=== PATIENT | female | born 1935 | race Caucasian/White ===

== ENCOUNTER 2018-02-17 15:18 | Inpatient (IN) | payer OTHER, BC ==
[~2018-02-17] VITALS: Ht 157.5 cm; Wt 54.1 kg
[2018-02-17 15:41] VITALS: Ht 157.5 cm; Wt 54.1 kg
[2018-02-17 16:31] LABS: PLATELET COUNT 212 x10^3mcL (130-400)
[2018-02-17 16:33] LABS: CALCIUM 7.9 mg/dL (8.5-10.1); CARBON DIOXIDE 26.4 mmol/L (21-32); CHLORIDE SERUM 97 mmol/L (98-107); CREATININE SERUM 0.6 mg/dL (0.6-1.0); GLUCOSE SERUM 129 mg/dL (74-106); POTASSIUM SERUM 3.9 mmol/L (3.5-5.1); SODIUM SERUM 132 mmol/L (136-145)
[2018-02-17 16:37] LABS: ALKALINE PHOSPHATASE 276 U/L (46-116); ALT/SGPT 8 U/L (14-59); AST/SGOT 12 U/L (15-37); BILIRUBIN TOTAL 0.35 mg/dL (0.20-1.00); LIPASE 93 IU/L (73-393)
[2018-02-17 17:07] LABS: RED CELL DISTRIBUTION WIDTH 22.9 % (11.5-14.5)
[2018-02-17 17:09] LABS: ALBUMIN 1.8 g/dL (3.4-5.0); AMYLASE 24 U/L (25-115)
[2018-02-17 17:25] LABS: BAND NEUTROPHIL 0 % (0-10); BASOPHIL 0 % (0-2); MONOCYTE 4 % (0-7); SEGMENTED NEUTROPHILS 11 % (37-75); rbc morphology (normal/abnorm) ABNORMAL (NORMAL)
[2018-02-17 17:30] LABS: MAGNESIUM 2.1 mg/dL (1.8-2.4); PHOSPHOROUS 3.2 mg/dL (2.5-4.9)
[2018-02-17 17:37] VITALS: BP 122/60
[2018-02-17 17:37] LABS: T3 TOTAL 0.79 ng/mL
[2018-02-17 17:42] LABS: FREE T4 1.23 ng/dL (0.76-1.46); FREE THYROXINE INDEX 2.7 ug/dL (1.4-4.5); T4(THYROXINE) 7.6 ug/dL (4.7-13.3)
[2018-02-17 21:39] VITALS: BP 121/58
[2018-02-17 22:04] VITALS: BP 108/54
[2018-02-17 22:32] VITALS: BP 106/54
[2018-02-17 23:22] VITALS: BP 107/55
[2018-02-17 23:32] LABS: microscopic required? YES; urine erythrocyte TRACE (NEGATIVE)
[2018-02-17 23:43] LABS: AMPHETAMINE QUAL UR NONE DETECTED (NEG <=1000)
[2018-02-18 01:13] VITALS: BP 111/55
[2018-02-18 05:45] VITALS: BP 114/57
[2018-02-18 06:58] LABS: CALCIUM 7.9 mg/dL (8.5-10.1); CARBON DIOXIDE 25.5 mmol/L (21-32); CHLORIDE SERUM 100 mmol/L (98-107); CREATININE SERUM 0.6 mg/dL (0.6-1.0); GLUCOSE SERUM 154 mg/dL (74-106); MAGNESIUM 2.1 mg/dL (1.8-2.4); PHOSPHOROUS 3.9 mg/dL (2.5-4.9); POTASSIUM SERUM 4.6 mmol/L (3.5-5.1); SODIUM SERUM 131 mmol/L (136-145); TRIGLYCERIDES 57 mg/dL (<150)
[2018-02-18 07:03] LABS: CHOLESTEROL 79 mg/dL (<200); CHOLESTEROL/HDL RATIO 3.4; HDL CHOLESTEROL 23 mg/dL (40-60)
[2018-02-18 08:27] LABS: PLATELET COUNT 208 x10^3mcL (130-400)
[2018-02-18 08:48] VITALS: BP 99/60
[2018-02-18 09:26] LABS: RED CELL DISTRIBUTION WIDTH 23.4 % (11.5-14.5)
[2018-02-18 11:50] LABS: BAND NEUTROPHIL 2 % (0-10); BASOPHIL 0 % (0-2); MONOCYTE 3 % (0-7); SEGMENTED NEUTROPHILS 11 % (37-75)
[2018-02-18 11:52] LABS: rbc morphology (normal/abnorm) ABNORMAL (NORMAL)
[2018-02-18 11:53] LABS: PLATELET MORPHOLOGY PLATELETS DECREASED; burr cell (echinocyte) 2+
[2018-02-18 12:50] VITALS: BP 109/61
[2018-02-18 15:57] VITALS: BP 111/60
[2018-02-18 20:53] VITALS: BP 141/56
[2018-02-19 05:33] VITALS: BP 132/59
[2018-02-19 06:53] LABS: CALCIUM 7.6 mg/dL (8.5-10.1); CARBON DIOXIDE 25.9 mmol/L (21-32); CHLORIDE SERUM 105 mmol/L (98-107); CREATININE SERUM 0.6 mg/dL (0.6-1.0); GLUCOSE SERUM 89 mg/dL (74-106); MAGNESIUM 1.9 mg/dL (1.8-2.4); PHOSPHOROUS 2.9 mg/dL (2.5-4.9); POTASSIUM SERUM 3.8 mmol/L (3.5-5.1); SODIUM SERUM 135 mmol/L (136-145)
[2018-02-19 07:01] LABS: PLATELET COUNT 189 x10^3mcL (130-400)
[2018-02-19 09:16] LABS: ATYPICAL LYMPH 3 %; BAND NEUTROPHIL 0 % (0-10); BASOPHIL 0 % (0-2); MONOCYTE 7 % (0-7); SEGMENTED NEUTROPHILS 2 % (37-75)
[2018-02-19 09:19] LABS: PLATELET MORPHOLOGY PLATELETS DECREASED; acanthocyte (spur cell) 3+; rbc morphology (normal/abnorm) ABNORMAL (NORMAL)
[2018-02-19 10:17] VITALS: BP 152/64
[2018-02-19 12:43] VITALS: BP 108/56
[2018-02-19 17:33] VITALS: BP 125/54
[2018-02-19 21:38] VITALS: BP 117/48
[2018-02-20 05:37] VITALS: BP 139/47
[2018-02-20 06:13] LABS: CALCIUM 7.7 mg/dL (8.5-10.1); CARBON DIOXIDE 24.8 mmol/L (21-32); CHLORIDE SERUM 105 mmol/L (98-107); CREATININE SERUM 0.5 mg/dL (0.6-1.0); GLUCOSE SERUM 89 mg/dL (74-106); POTASSIUM SERUM 3.5 mmol/L (3.5-5.1); SODIUM SERUM 136 mmol/L (136-145)
[2018-02-20 06:23] LABS: PLATELET COUNT 188 x10^3mcL (130-400)
[2018-02-20 06:24] LABS: RED CELL DISTRIBUTION WIDTH 23.3 % (11.5-14.5)
[2018-02-20 07:29] LABS: ATYPICAL LYMPH 3 %; BAND NEUTROPHIL 3 % (0-10); MONOCYTE 7 % (0-7); SEGMENTED NEUTROPHILS 3 % (37-75); rbc morphology (normal/abnorm) ABNORMAL (NORMAL); target cell (codocyte) 1+
[2018-02-20 07:32] VITALS: BP 141/54
[2018-02-20 17:23] VITALS: BP 135/64
[2018-02-20] MEDS ORDERED: PROLENSA1.6 ML OP (18:11)
[2018-02-20 20:54] VITALS: BP 127/59
[2018-02-21 06:09] VITALS: BP 145/62
[2018-02-21 08:27] VITALS: BP 154/70
[2018-02-21 12:53] VITALS: BP 122/65
[2018-02-21 17:20] VITALS: BP 144/86
[2018-02-21 20:48] VITALS: BP 95/55
[2018-02-22 05:32] VITALS: BP 140/62
[2018-02-22 05:59] LABS: CALCIUM 7.8 mg/dL (8.5-10.1); CARBON DIOXIDE 25.9 mmol/L (21-32); CHLORIDE SERUM 99 mmol/L (98-107); CREATININE SERUM 0.4 mg/dL (0.6-1.0); GLUCOSE SERUM 88 mg/dL (74-106); MAGNESIUM 1.7 mg/dL (1.8-2.4); PHOSPHOROUS 3.2 mg/dL (2.5-4.9); SODIUM SERUM 132 mmol/L (136-145)
[2018-02-22 06:13] LABS: POTASSIUM SERUM 2.8 mmol/L (3.5-5.1)
[2018-02-22 08:01] LABS: PLATELET COUNT 239 x10^3mcL (130-400)
[2018-02-22 08:36] LABS: RED CELL DISTRIBUTION WIDTH 24.2 % (11.5-14.5)
[2018-02-22 09:11] VITALS: BP 136/66
[2018-02-22 12:35] LABS: BAND NEUTROPHIL 1 % (0-10); MONOCYTE 4 % (0-7); MYELOCYTE 1 % (0-2); SEGMENTED NEUTROPHILS 3 % (37-75)
[2018-02-22 12:38] LABS: rbc morphology (normal/abnorm) ABNORMAL (NORMAL)
[2018-02-22 12:45] LABS: PLATELET MORPHOLOGY PLATELETS NORMAL; acanthocyte (spur cell) 2+
[2018-02-22 14:46] LABS: CALCIUM 8.1 mg/dL (8.5-10.1); CARBON DIOXIDE 29.3 mmol/L (21-32); CHLORIDE SERUM 102 mmol/L (98-107); CREATININE SERUM 0.5 mg/dL (0.6-1.0); GLUCOSE SERUM 112 mg/dL (74-106); POTASSIUM SERUM 3.7 mmol/L (3.5-5.1); SODIUM SERUM 133 mmol/L (136-145)
[2018-02-22 17:25] VITALS: BP 117/60
[2018-02-22 21:26] VITALS: BP 136/62
[2018-02-23 05:15] VITALS: BP 142/68
[2018-02-23 06:31] LABS: CALCIUM 7.8 mg/dL (8.5-10.1); CARBON DIOXIDE 27.4 mmol/L (21-32); CHLORIDE SERUM 100 mmol/L (98-107); CREATININE SERUM 0.5 mg/dL (0.6-1.0); GLUCOSE SERUM 103 mg/dL (74-106); MAGNESIUM 1.9 mg/dL (1.8-2.4); PHOSPHOROUS 2.6 mg/dL (2.5-4.9); POTASSIUM SERUM 3.5 mmol/L (3.5-5.1); SODIUM SERUM 133 mmol/L (136-145)
[2018-02-23 08:15] LABS: PLATELET COUNT 237 x10^3mcL (130-400)
[2018-02-23 08:23] LABS: RED CELL DISTRIBUTION WIDTH 23.8 % (11.5-14.5)
[2018-02-23 09:13] VITALS: BP 139/69
[2018-02-23 13:21] LABS: BAND NEUTROPHIL 2 % (0-10); MONOCYTE 5 % (0-7); SEGMENTED NEUTROPHILS 2 % (37-75)
[2018-02-23 13:22] LABS: PLATELET MORPHOLOGY PLATELETS NORMAL; acanthocyte (spur cell) 2+; rbc morphology (normal/abnorm) ABNORMAL (NORMAL)
[2018-02-23 15:58] VITALS: BP 139/69
== END 2018-02-23 17:35 | disposition home health service (06) | DRG 329 ==
LOC: ED 15:18 → MU 16:32 → DU 16:32 → MU 02-18 14:41
PROVIDERS: Family Medicine; Specialist; Surgery
PROC: 0DBN0ZZ Excision of Sigmoid Colon, Open Approach (ICD-10-PCS; principal; 2018-02-17 17:30)
PROC: 0HBRXZZ Excision of Toe Nail, External Approach (ICD-10-PCS; 2018-02-20)
PROC: 0HBRXZZ Excision of Toe Nail, External Approach (ICD-10-PCS; 2018-02-20)
PROC: 0HBRXZZ Excision of Toe Nail, External Approach (ICD-10-PCS; 2018-02-20)
PROC: 0HBRXZZ Excision of Toe Nail, External Approach (ICD-10-PCS; 2018-02-20)
PROC: 0HBRXZZ Excision of Toe Nail, External Approach (ICD-10-PCS; 2018-02-20)
PROC: 0HBRXZZ Excision of Toe Nail, External Approach (ICD-10-PCS; 2018-02-20)
PROC: 0HBRXZZ Excision of Toe Nail, External Approach (ICD-10-PCS; 2018-02-20)
PROC: 0HBRXZZ Excision of Toe Nail, External Approach (ICD-10-PCS; 2018-02-20)
PROC: 0HBRXZZ Excision of Toe Nail, External Approach (ICD-10-PCS; 2018-02-20)
PROC: 0HBRXZZ Excision of Toe Nail, External Approach (ICD-10-PCS; 2018-02-20)
DX: K94.09 Other complications of colostomy (principal); E43 Unspecified severe protein-calorie malnutrition; N39.0 Urinary tract infection, site not specified; E87.1 Hypo-osmolality and hyponatremia; I50.9 Heart failure, unspecified; I11.0 Hypertensive heart disease with heart failure; J44.9 Chronic obstructive pulmonary disease, unspecified; B35.1 Tinea unguium; Y83.3 Surgical operation with formation of external stoma as the cause of abnormal reaction of the patient, or of later complication, without mention of misadventure at the time of the procedure; Y92.009 Unspecified place in unspecified non-institutional (private) residence as the place of occurrence of the external cause; Z88.6 Allergy status to analgesic agent; Z88.0 Allergy status to penicillin; Z88.2 Allergy status to sulfonamides; Z86.73 Personal history of transient ischemic attack (TIA), and cerebral infarction without residual deficits; E11.65 Type 2 diabetes mellitus with hyperglycemia; G30.9 Alzheimer's disease, unspecified; F02.80 Dementia in other diseases classified elsewhere, unspecified severity, without behavioral disturbance, psychotic disturbance, mood disturbance, and anxiety; Z68.29 Body mass index [BMI] 29.0-29.9, adult
CPT/HCPCS: 83880; 84439; 92610; 97110-GP; 97116-GP; 97530-GP; J0696; J1170; J1644; J2270; J2405; J2704; J2710; J3010; J3480; J3490; J7030; J7620; Q0092

== ENCOUNTER 2018-05-20 19:31 | Inpatient (IN) | payer OTHER, BC ==
[~2018-05-20] VITALS: Ht 157.5 cm; Wt 66.2 kg
[~2018-05-20 19:31] MED LIST: PROLENSA1.6 ML OP
[2018-05-20 19:33] VITALS: BP 128/67
[2018-05-21] VITALS (8 sets, daily range): BP systolic 98–171; BP diastolic 55–94
[2018-05-21 02:49] LABS: CALCIUM 8.5 mg/dL (8.5-10.1); CHLORIDE SERUM 102 mmol/L (98-107); CREATININE SERUM 0.8 mg/dL (0.6-1.0); GLUCOSE SERUM 120 mg/dL (74-106); POTASSIUM SERUM 3.8 mmol/L (3.5-5.1); SODIUM SERUM 135 mmol/L (136-145)
[2018-05-21 02:58] LABS: MAGNESIUM 1.7 mg/dL (1.8-2.4); PHOSPHOROUS 2.7 mg/dL (2.5-4.9)
[2018-05-21 03:02] LABS: CHOLESTEROL/HDL RATIO 2.8; T3 TOTAL 0.72 ng/mL
[2018-05-21 03:05] LABS: FREE T4 1.5 ng/dL (0.76-1.46); T4(THYROXINE) 8.3 ug/dL (4.7-13.3)
[2018-05-21 03:31] LABS: PLATELET COUNT 122 x10^3mcL (130-400); RED CELL DISTRIBUTION WIDTH 19.1 % (11.5-14.5)
[2018-05-21 04:26] LABS: BAND NEUTROPHIL 0 % (0-10); BASOPHIL 0 % (0-2); MONOCYTE 8 % (0-7); SEGMENTED NEUTROPHILS 5 % (37-75)
[2018-05-21 04:28] LABS: rbc morphology (normal/abnorm) ABNORMAL (NORMAL)
[2018-05-21 04:29] LABS: PLATELET MORPHOLOGY LARGE PLATELET SEEN; burr cell (echinocyte) 1+; target cell (codocyte) 1+
[2018-05-22 03:19] VITALS: BP 136/72
[2018-05-22 05:43] LABS: PLATELET COUNT 130 x10^3mcL (130-400)
[2018-05-22 05:49] LABS: CALCIUM 8.5 mg/dL (8.5-10.1); CARBON DIOXIDE 23.4 mmol/L (21-32); CHLORIDE SERUM 104 mmol/L (98-107); CREATININE SERUM 0.7 mg/dL (0.6-1.0); GLUCOSE SERUM 158 mg/dL (74-106); MAGNESIUM 1.7 mg/dL (1.8-2.4); POTASSIUM SERUM 3.5 mmol/L (3.5-5.1); SODIUM SERUM 134 mmol/L (136-145)
[2018-05-22 07:19] LABS: RED CELL DISTRIBUTION WIDTH 18.9 % (11.5-14.5)
[2018-05-22 07:55] VITALS: Ht 157.5 cm; Wt 66.2 kg
[2018-05-22 12:10] LABS: MONOCYTE 5 % (0-7); SEGMENTED NEUTROPHILS 35 % (37-75)
[2018-05-22 12:11] LABS: BAND NEUTROPHIL 5 % (0-10); BASOPHIL 0 % (0-2); rbc morphology (normal/abnorm) ABNORMAL (NORMAL); target cell (codocyte) 1+
[2018-05-22 12:13] LABS: tear drop cell (dacryocyte) 1+
[2018-05-22 12:14] LABS: burr cell (echinocyte) 1+; schistocyte (helmet cell) 1+
[2018-05-22 12:16] LABS: PLATELET MORPHOLOGY GIANT PLATELET SEEN
[2018-05-22 19:49] VITALS: BP 156/82
[2018-05-22 23:38] VITALS: BP 145/79
[2018-05-23 03:46] VITALS: BP 120/67
[2018-05-23 05:15] LABS: BASOPHIL % 0.1 % (0-2)
[2018-05-23 05:30] LABS: CALCIUM 9.1 mg/dL (8.5-10.1); CARBON DIOXIDE 25.8 mmol/L (21-32); CHLORIDE SERUM 105 mmol/L (98-107); CREATININE SERUM 0.6 mg/dL (0.6-1.0); GLUCOSE SERUM 143 mg/dL (74-106); MAGNESIUM 1.9 mg/dL (1.8-2.4); PHOSPHOROUS 3.2 mg/dL (2.5-4.9); SODIUM SERUM 136 mmol/L (136-145)
[2018-05-23 07:52] LABS: PLATELET COUNT 157 x10^3mcL (130-400)
[2018-05-23 13:00] VITALS: BP 158/93
[2018-05-23 16:23] VITALS: BP 153/89
[2018-05-23 21:20] VITALS: BP 143/87
[2018-05-24 05:44] VITALS: BP 141/82
[2018-05-24 10:18] VITALS: BP 149/82
[2018-05-24 11:29] LABS: CALCIUM 8.8 mg/dL (8.5-10.1); CARBON DIOXIDE 30.5 mmol/L (21-32); CHLORIDE SERUM 104 mmol/L (98-107); CREATININE SERUM 0.5 mg/dL (0.6-1.0); GLUCOSE SERUM 182 mg/dL (74-106); POTASSIUM SERUM 3.3 mmol/L (3.5-5.1); SODIUM SERUM 141 mmol/L (136-145)
[2018-05-24 11:34] LABS: PLATELET COUNT 172 x10^3mcL (130-400)
[2018-05-24 12:05] LABS: RED CELL DISTRIBUTION WIDTH 18.6 % (11.5-14.5)
[2018-05-24 12:42] LABS: BAND NEUTROPHIL 6 % (0-10); BASOPHIL 0 % (0-2); MONOCYTE 6 % (0-7); SEGMENTED NEUTROPHILS 37 % (37-75)
[2018-05-24 12:43] LABS: PLATELET MORPHOLOGY GIANT PLATELET SEEN; rbc morphology (normal/abnorm) ABNORMAL (NORMAL); target cell (codocyte) 1+; tear drop cell (dacryocyte) 1+
[2018-05-24 12:44] LABS: burr cell (echinocyte) 1+; schistocyte (helmet cell) 1+
[2018-05-24] MEDS ORDERED: IPRATROPIUM BROM3 M2 INH (13:02)
[2018-05-24] MEDS ORDERED: ZES10 PO (13:02)
[2018-05-24] MEDS ORDERED: COR200 PO (13:02)
[2018-05-24] MEDS ORDERED: NOR5 PO (13:02)
[2018-05-24] MEDS ORDERED: COR3 PO (13:02)
[2018-05-24] MEDS ORDERED: TRA50 PO (13:03)
[2018-05-24] MEDS ORDERED: PRI20 PO (13:03)
[2018-05-24] MEDS ORDERED: PREDNISONE50 MG PO (13:07)
[2018-05-24] MEDS ORDERED: ASPIR LOW81 MG PO (13:08)
[2018-05-24] MEDS ORDERED: DOXYCYCLINE MO100 MG PO (13:08)
[2018-05-24] MEDS ORDERED: L20I PO (13:08)
[2018-05-24 13:25] VITALS: BP 141/80
[2018-05-24 14:55] VITALS: BP 141/80
[2018-05-24 17:51] VITALS: BP 141/80
[2018-05-24 17:55] VITALS: BP 142/76
== END 2018-05-24 22:28 | disposition home health service (06) | DRG 871 ==
LOC: DU 19:31 → MU 19:31 → IC 19:31 → DU 05-21 06:17 → IC 05-21 09:09 → DU 05-23 11:08
PROVIDERS: Internal Medicine
DX: A41.9 Sepsis, unspecified organism (principal); I21.A1 Myocardial infarction type 2; J96.01 Acute respiratory failure with hypoxia; I50.43 Acute on chronic combined systolic (congestive) and diastolic (congestive) heart failure; J18.9 Pneumonia, unspecified organism; N17.0 Acute kidney failure with tubular necrosis; E43 Unspecified severe protein-calorie malnutrition; G93.41 Metabolic encephalopathy; J44.1 Chronic obstructive pulmonary disease with (acute) exacerbation; I48.92 Unspecified atrial flutter; R65.20 Severe sepsis without septic shock; E11.65 Type 2 diabetes mellitus with hyperglycemia; I11.0 Hypertensive heart disease with heart failure; D63.1 Anemia in chronic kidney disease; E83.42 Hypomagnesemia; K21.9 Gastro-esophageal reflux disease without esophagitis; Z66 Do not resuscitate; Z85.6 Personal history of leukemia; Z79.4 Long term (current) use of insulin; Z68.27 Body mass index [BMI] 27.0-27.9, adult; F17.210 Nicotine dependence, cigarettes, uncomplicated
CPT/HCPCS: 36600; 83880; 84439; 97110-GP; 97116-GP; 97530-GP; 97535-GP; J0282; J0696; J1940; J2270; J2920; J3490; J7030; J7620; Q0092

== ENCOUNTER 2018-09-04 02:21 | Inpatient (IN) | payer OTHER, BC ==
[~2018-09-04] VITALS: Ht 157.5 cm; Wt 47.6 kg
[~2018-09-04 02:21] MED LIST changes: +ASPIR LOW81 MG PO; +COR200 PO; +COR3 PO; +DOXYCYCLINE MO100 MG PO; +IPRATROPIUM BROM3 M2 INH; +L20I PO; +NOR5 PO; +PREDNISONE50 MG PO; +PRI20 PO; +TRA50 PO; +ZES10 PO
[2018-09-04 03:22] LABS: CALCIUM 8.3 mg/dL (8.5-10.1); CARBON DIOXIDE 28.9 mmol/L (21-32); CHLORIDE SERUM 94 mmol/L (98-107); GLUCOSE SERUM 133 mg/dL (74-106); POTASSIUM SERUM 3.2 mmol/L (3.5-5.1); SODIUM SERUM 133 mmol/L (136-145)
[2018-09-04 03:26] LABS: BASOPHIL % 0.5 % (0-2); PLATELET COUNT 171 x10^3mcL (130-400)
[2018-09-04 03:32] LABS: ALKALINE PHOSPHATASE 182 U/L (46-116); ALT/SGPT 9 U/L (14-59); AST/SGOT 18 U/L (15-37); CHOLESTEROL 83 mg/dL (<200); CHOLESTEROL/HDL RATIO 2.5; HDL CHOLESTEROL 33 mg/dL (40-60); LIPASE 51 IU/L (73-393); TOTAL PROTEIN, SERUM 9.3 g/dL (6.4-8.2); TRIGLYCERIDES 75 mg/dL (<150)
[2018-09-04 03:40] LABS: RED CELL DISTRIBUTION WIDTH 20.8 % (11.5-14.5)
[2018-09-04 03:43] LABS: rbc morphology (normal/abnorm) ABNORMAL (NORMAL)
[2018-09-04 04:00] LABS: T3 TOTAL 0.72 ng/mL
[2018-09-04 04:07] LABS: microscopic required? YES; urine erythrocyte NEGATIVE (NEGATIVE)
[2018-09-04 04:18] LABS: FREE T4 1.59 ng/dL (0.76-1.46); FREE THYROXINE INDEX 3.3 ug/dL (1.4-4.5); T4(THYROXINE) 9.1 ug/dL (4.7-13.3)
[2018-09-04 04:32] LABS: MAGNESIUM 1.7 mg/dL (1.8-2.4); PHOSPHOROUS 3.3 mg/dL (2.5-4.9)
[2018-09-04 06:23] VITALS: BP 170/88
[2018-09-04 09:36] VITALS: BP 156/78
[2018-09-04 11:58] LABS: CALCIUM 8.4 mg/dL (8.5-10.1); CARBON DIOXIDE 31.4 mmol/L (21-32); CHLORIDE SERUM 97 mmol/L (98-107); CREATININE SERUM 0.9 mg/dL (0.6-1.0); GLUCOSE SERUM 134 mg/dL (74-106); SODIUM SERUM 134 mmol/L (136-145)
[2018-09-04 13:09] LABS: PLATELET COUNT 176 x10^3mcL (130-400)
[2018-09-04 13:10] LABS: RED CELL DISTRIBUTION WIDTH 20.9 % (11.5-14.5)
[2018-09-04 13:52] LABS: BAND NEUTROPHIL 13 % (0-10); BASOPHIL 0 % (0-2); MONOCYTE 8 % (0-7); MYELOCYTE 1 % (0-2); SEGMENTED NEUTROPHILS 33 % (37-75)
[2018-09-04 13:55] LABS: rbc morphology (normal/abnorm) ABNORMAL (NORMAL)
[2018-09-04 13:56] LABS: PLATELET MORPHOLOGY GIANT PLATELET SEEN; acanthocyte (spur cell) 1+; burr cell (echinocyte) 1+; ovalocyte/elliptocyte 1+; target cell (codocyte) 1+
[2018-09-04 14:03] VITALS: BP 158/92
[2018-09-04 17:08] VITALS: BP 133/78
[2018-09-04 21:24] VITALS: BP 155/85
[2018-09-05 05:13] VITALS: BP 174/86
[2018-09-05 07:19] LABS: PLATELET COUNT 196 x10^3mcL (130-400)
[2018-09-05 07:37] LABS: CALCIUM 8.3 mg/dL (8.5-10.1); CARBON DIOXIDE 28.2 mmol/L (21-32); CHLORIDE SERUM 99 mmol/L (98-107); CREATININE SERUM 0.8 mg/dL (0.6-1.0); GLUCOSE SERUM 142 mg/dL (74-106); MAGNESIUM 2.1 mg/dL (1.8-2.4); POTASSIUM SERUM 4.1 mmol/L (3.5-5.1); SODIUM SERUM 136 mmol/L (136-145)
[2018-09-05 07:57] VITALS: BP 171/84
[2018-09-05 08:35] LABS: RED CELL DISTRIBUTION WIDTH 20.8 % (11.5-14.5)
[2018-09-05 10:00] LABS: BAND NEUTROPHIL 12 % (0-10); BASOPHIL 0 % (0-2); MONOCYTE 9 % (0-7); SEGMENTED NEUTROPHILS 39 % (37-75)
[2018-09-05 10:01] VITALS: BP 150/78
[2018-09-05 10:01] LABS: rbc morphology (normal/abnorm) ABNORMAL (NORMAL)
[2018-09-05 10:02] LABS: acanthocyte (spur cell) 1+; burr cell (echinocyte) 1+; ovalocyte/elliptocyte 1+; target cell (codocyte) 1+
[2018-09-05 18:01] VITALS: BP 178/89
[2018-09-05 20:50] VITALS: BP 195/102
[2018-09-05 22:30] VITALS: BP 128/64
[2018-09-06 05:35] VITALS: BP 162/83
[2018-09-06 06:34] LABS: PLATELET COUNT 213 x10^3mcL (130-400)
[2018-09-06 07:07] LABS: CALCIUM 8.5 mg/dL (8.5-10.1); CARBON DIOXIDE 32.2 mmol/L (21-32); CHLORIDE SERUM 100 mmol/L (98-107); CREATININE SERUM 0.7 mg/dL (0.6-1.0); GLUCOSE SERUM 142 mg/dL (74-106); MAGNESIUM 2.1 mg/dL (1.8-2.4); PHOSPHOROUS 3.5 mg/dL (2.5-4.9); SODIUM SERUM 135 mmol/L (136-145)
[2018-09-06 07:34] LABS: RED CELL DISTRIBUTION WIDTH 21.4 % (11.5-14.5)
[2018-09-06 08:05] VITALS: BP 146/80
[2018-09-06 11:44] LABS: BAND NEUTROPHIL 11 % (0-10); BASOPHIL 0 % (0-2); MONOCYTE 9 % (0-7)
[2018-09-06 11:46] LABS: SEGMENTED NEUTROPHILS 38 % (37-75); rbc morphology (normal/abnorm) ABNORMAL (NORMAL)
[2018-09-06 11:47] LABS: burr cell (echinocyte) 1+; ovalocyte/elliptocyte 1+; target cell (codocyte) 1+
[2018-09-06 13:15] VITALS: BP 150/77
[2018-09-06 16:27] VITALS: BP 147/98
[2018-09-06 19:59] VITALS: BP 189/98
[2018-09-06 21:04] VITALS: BP 167/89
[2018-09-07] VITALS (8 sets, daily range): BP systolic 151–185; BP diastolic 68–111
[2018-09-07 06:50] LABS: PLATELET COUNT 228 x10^3mcL (130-400)
[2018-09-07 07:06] LABS: CALCIUM 8.2 mg/dL (8.5-10.1); CARBON DIOXIDE 33.4 mmol/L (21-32); CHLORIDE SERUM 99 mmol/L (98-107); CREATININE SERUM 0.6 mg/dL (0.6-1.0); GLUCOSE SERUM 134 mg/dL (74-106); PHOSPHOROUS 2.3 mg/dL (2.5-4.9); POTASSIUM SERUM 3.2 mmol/L (3.5-5.1); SODIUM SERUM 138 mmol/L (136-145)
[2018-09-07 08:10] LABS: RED CELL DISTRIBUTION WIDTH 21.4 % (11.5-14.5)
[2018-09-07 13:30] LABS: BAND NEUTROPHIL 5 % (0-10); MONOCYTE 5 % (0-7); SEGMENTED NEUTROPHILS 36 % (37-75); rbc morphology (normal/abnorm) ABNORMAL (NORMAL)
[2018-09-07 13:31] LABS: acanthocyte (spur cell) 1+; burr cell (echinocyte) 2+; ovalocyte/elliptocyte 1+; target cell (codocyte) 2+
[2018-09-07 13:32] LABS: PLATELET MORPHOLOGY GIANT PLATELET SEEN
[2018-09-08] VITALS (10 sets, daily range): BP systolic 145–183; BP diastolic 73–90
[2018-09-08 07:15] LABS: PLATELET COUNT 198 x10^3mcL (130-400)
[2018-09-08 07:17] LABS: CALCIUM 8.2 mg/dL (8.5-10.1); CARBON DIOXIDE 34.1 mmol/L (21-32); CHLORIDE SERUM 102 mmol/L (98-107); CREATININE SERUM 0.6 mg/dL (0.6-1.0); GLUCOSE SERUM 119 mg/dL (74-106); MAGNESIUM 1.9 mg/dL (1.8-2.4); PHOSPHOROUS 2.4 mg/dL (2.5-4.9); POTASSIUM SERUM 3.4 mmol/L (3.5-5.1); SODIUM SERUM 137 mmol/L (136-145)
[2018-09-08 07:21] LABS: RED CELL DISTRIBUTION WIDTH 20.8 % (11.5-14.5)
[2018-09-08 09:23] LABS: ATYPICAL LYMPH 5 %; BAND NEUTROPHIL 0 % (0-10); BASOPHIL 0 % (0-2); MONOCYTE 24 % (0-7); PLATELET MORPHOLOGY PLATELETS DECREASED; SEGMENTED NEUTROPHILS 7 % (37-75)
[2018-09-08 09:25] LABS: acanthocyte (spur cell) 3+; rbc morphology (normal/abnorm) ABNORMAL (NORMAL); target cell (codocyte) 2+
[2018-09-09] VITALS (9 sets, daily range): BP systolic 140–190; BP diastolic 64–95
[2018-09-09 06:47] LABS: CALCIUM 8.3 mg/dL (8.5-10.1); CARBON DIOXIDE 35.3 mmol/L (21-32); CHLORIDE SERUM 99 mmol/L (98-107); CREATININE SERUM 0.6 mg/dL (0.6-1.0); GLUCOSE SERUM 141 mg/dL (74-106); PHOSPHOROUS 2.7 mg/dL (2.5-4.9); POTASSIUM SERUM 3.3 mmol/L (3.5-5.1); SODIUM SERUM 138 mmol/L (136-145)
[2018-09-09 12:46] LABS: PLATELET COUNT 214 x10^3mcL (130-400)
[2018-09-09 12:54] LABS: RED CELL DISTRIBUTION WIDTH 21.3 % (11.5-14.5)
[2018-09-09 13:59] LABS: ATYPICAL LYMPH 8 %; BAND NEUTROPHIL 0 % (0-10); BASOPHIL 0 % (0-2); MONOCYTE 30 % (0-7); SEGMENTED NEUTROPHILS 8 % (37-75)
[2018-09-09 14:01] LABS: acanthocyte (spur cell) 2+; rbc morphology (normal/abnorm) ABNORMAL (NORMAL)
[2018-09-09 14:02] LABS: PLATELET MORPHOLOGY PLATELETS DECREASED
[2018-09-10] VITALS (7 sets, daily range): BP systolic 118–192; BP diastolic 53–88
[2018-09-10 06:58] LABS: CALCIUM 8.5 mg/dL (8.5-10.1); CARBON DIOXIDE 37.2 mmol/L (21-32); CHLORIDE SERUM 101 mmol/L (98-107); CREATININE SERUM 0.5 mg/dL (0.6-1.0); GLUCOSE SERUM 148 mg/dL (74-106); MAGNESIUM 2.1 mg/dL (1.8-2.4); PHOSPHOROUS 3.1 mg/dL (2.5-4.9); POTASSIUM SERUM 3.3 mmol/L (3.5-5.1); SODIUM SERUM 141 mmol/L (136-145)
[2018-09-10 09:46] LABS: PLATELET COUNT 188 x10^3mcL (130-400); RED CELL DISTRIBUTION WIDTH 19.3 % (11.5-14.5)
[2018-09-10 09:53] LABS: BAND NEUTROPHIL 0 % (0-10); MONOCYTE 46 % (0-7); SEGMENTED NEUTROPHILS 8 % (37-75)
[2018-09-10 09:54] LABS: PLATELET MORPHOLOGY PLATELETS DECREASED; rbc morphology (normal/abnorm) ABNORMAL (NORMAL)
[2018-09-11 05:33] VITALS: BP 152/68
[2018-09-11 06:32] LABS: CALCIUM 8.3 mg/dL (8.5-10.1); CARBON DIOXIDE 38.7 mmol/L (21-32); CHLORIDE SERUM 101 mmol/L (98-107); CREATININE SERUM 0.5 mg/dL (0.6-1.0); GLUCOSE SERUM 145 mg/dL (74-106); MAGNESIUM 2.2 mg/dL (1.8-2.4); PHOSPHOROUS 2.7 mg/dL (2.5-4.9); POTASSIUM SERUM 3.1 mmol/L (3.5-5.1); SODIUM SERUM 140 mmol/L (136-145)
[2018-09-11 07:44] LABS: PLATELET COUNT 172 x10^3mcL (130-400)
[2018-09-11 08:07] VITALS: BP 168/79
[2018-09-11 08:40] LABS: RED CELL DISTRIBUTION WIDTH 21.2 % (11.5-14.5)
[2018-09-11 09:55] LABS: BAND NEUTROPHIL 1 % (0-10); BASOPHIL 0 % (0-2); MONOCYTE 15 % (0-7); SEGMENTED NEUTROPHILS 9 % (37-75)
[2018-09-11 09:56] LABS: rbc morphology (normal/abnorm) ABNORMAL (NORMAL); target cell (codocyte) 1+
[2018-09-11 09:57] LABS: PLATELET MORPHOLOGY GIANT PLATELET SEEN; burr cell (echinocyte) 1+; tear drop cell (dacryocyte) 1+
[2018-09-11 12:55] VITALS: BP 174/80
[2018-09-11 18:27] VITALS: BP 159/76
[2018-09-11 21:05] VITALS: BP 143/71
[2018-09-12] VITALS (7 sets, daily range): BP systolic 120–176; BP diastolic 63–78; Ht 157.5 cm; Wt 47.6 kg
[2018-09-12 07:23] LABS: CALCIUM 8.3 mg/dL (8.5-10.1); CARBON DIOXIDE 37.3 mmol/L (21-32); CHLORIDE SERUM 100 mmol/L (98-107); CREATININE SERUM 0.6 mg/dL (0.6-1.0); GLUCOSE SERUM 120 mg/dL (74-106); MAGNESIUM 2.5 mg/dL (1.8-2.4); PHOSPHOROUS 3.2 mg/dL (2.5-4.9); POTASSIUM SERUM 3.4 mmol/L (3.5-5.1); SODIUM SERUM 138 mmol/L (136-145)
[2018-09-12 08:07] LABS: PLATELET COUNT 132 x10^3mcL (130-400)
[2018-09-12 08:11] LABS: RED CELL DISTRIBUTION WIDTH 20.8 % (11.5-14.5)
[2018-09-12 09:58] LABS: BAND NEUTROPHIL 2 % (0-10); BASOPHIL 0 % (0-2); MONOCYTE 17 % (0-7); SEGMENTED NEUTROPHILS 13 % (37-75)
[2018-09-12 10:05] LABS: PLATELET MORPHOLOGY GIANT PLATELET SEEN; rbc morphology (normal/abnorm) ABNORMAL (NORMAL); target cell (codocyte) 1+
[2018-09-12 10:06] LABS: burr cell (echinocyte) 1+; tear drop cell (dacryocyte) 1+
[2018-09-13 05:45] VITALS: BP 135/66
[2018-09-13 07:07] LABS: CARBON DIOXIDE 39.2 mmol/L (21-32); CHLORIDE SERUM 98 mmol/L (98-107); CREATININE SERUM 0.6 mg/dL (0.6-1.0); GLUCOSE SERUM 121 mg/dL (74-106); PHOSPHOROUS 2.5 mg/dL (2.5-4.9); POTASSIUM SERUM 3.7 mmol/L (3.5-5.1); SODIUM SERUM 136 mmol/L (136-145)
[2018-09-13 07:57] LABS: PLATELET COUNT 105 x10^3mcL (130-400); RED CELL DISTRIBUTION WIDTH 21.4 % (11.5-14.5)
[2018-09-13 08:57] VITALS: BP 114/59
[2018-09-13 13:27] VITALS: BP 145/65
[2018-09-13 14:09] LABS: BAND NEUTROPHIL 10 % (0-10); MONOCYTE 5 % (0-7); SEGMENTED NEUTROPHILS 15 % (37-75)
[2018-09-13 14:10] LABS: PLATELET MORPHOLOGY PLATELETS DECREASED; rbc morphology (normal/abnorm) ABNORMAL (NORMAL)
[2018-09-13 17:54] VITALS: BP 144/72
[2018-09-13 20:27] VITALS: BP 126/50
[2018-09-14 04:55] VITALS: BP 119/53
[2018-09-14 09:43] VITALS: BP 115/54
[2018-09-14 11:16] LABS: CALCIUM 7.6 mg/dL (8.5-10.1); CHLORIDE SERUM 95 mmol/L (98-107); CREATININE SERUM 0.7 mg/dL (0.6-1.0); GLUCOSE SERUM 130 mg/dL (74-106); POTASSIUM SERUM 3.7 mmol/L (3.5-5.1); SODIUM SERUM 135 mmol/L (136-145)
[2018-09-14 12:04] LABS: PLATELET COUNT 76 x10^3mcL (130-400); RED CELL DISTRIBUTION WIDTH 21.7 % (11.5-14.5)
[2018-09-14 12:15] LABS: ATYPICAL LYMPH 1 %; BAND NEUTROPHIL 0 % (0-10); BASOPHIL 0 % (0-2); MONOCYTE 23 % (0-7); SEGMENTED NEUTROPHILS 35 % (37-75)
[2018-09-14 12:16] LABS: acanthocyte (spur cell) 2+; rbc morphology (normal/abnorm) ABNORMAL (NORMAL)
[2018-09-14 12:17] LABS: PLATELET MORPHOLOGY PLATELETS DECREASED
[2018-09-14 14:21] VITALS: BP 104/52
[2018-09-14 18:26] VITALS: BP 124/47
[2018-09-14 21:00] VITALS: BP 126/66
[2018-09-15 04:48] VITALS: BP 142/68
[2018-09-15 06:50] LABS: CALCIUM 7.6 mg/dL (8.5-10.1); CARBON DIOXIDE 32.6 mmol/L (21-32); CHLORIDE SERUM 99 mmol/L (98-107); CREATININE SERUM 0.6 mg/dL (0.6-1.0); GLUCOSE SERUM 96 mg/dL (74-106); POTASSIUM SERUM 3.6 mmol/L (3.5-5.1); SODIUM SERUM 135 mmol/L (136-145)
[2018-09-15 07:27] LABS: PLATELET COUNT 73 x10^3mcL (130-400); RED CELL DISTRIBUTION WIDTH 21.3 % (11.5-14.5)
[2018-09-15 09:00] LABS: BAND NEUTROPHIL 0 % (0-10); BASOPHIL 0 % (0-2); MONOCYTE 48 % (0-7); PLATELET MORPHOLOGY PLATELETS DECREASED; SEGMENTED NEUTROPHILS 17 % (37-75); acanthocyte (spur cell) 2+; rbc morphology (normal/abnorm) ABNORMAL (NORMAL)
[2018-09-15 11:30] VITALS: BP 136/61
[2018-09-15 12:41] VITALS: BP 95/44
[2018-09-15 16:49] VITALS: BP 109/47
[2018-09-15 17:00] VITALS: BP 109/47
[2018-09-16 04:59] VITALS: BP 126/63
[2018-09-16 06:29] LABS: CALCIUM 7.7 mg/dL (8.5-10.1); CARBON DIOXIDE 34.6 mmol/L (21-32); CHLORIDE SERUM 98 mmol/L (98-107); CREATININE SERUM 0.5 mg/dL (0.6-1.0); GLUCOSE SERUM 109 mg/dL (74-106); PHOSPHOROUS 2.7 mg/dL (2.5-4.9); POTASSIUM SERUM 3.2 mmol/L (3.5-5.1); SODIUM SERUM 135 mmol/L (136-145)
[2018-09-16 07:33] LABS: PLATELET COUNT 89 x10^3mcL (130-400)
[2018-09-16 08:43] LABS: BAND NEUTROPHIL 0 % (0-10); MONOCYTE 28 % (0-7); SEGMENTED NEUTROPHILS 9 % (37-75)
[2018-09-16 08:44] LABS: ATYPICAL LYMPH 2 %; BASOPHIL 1 % (0-2)
[2018-09-16 08:45] LABS: burr cell (echinocyte) 2+; rbc morphology (normal/abnorm) ABNORMAL (NORMAL)
[2018-09-16 08:46] LABS: PLATELET MORPHOLOGY PLATELETS DECREASED
[2018-09-16 09:17] VITALS: BP 108/51
[2018-09-16 15:32] VITALS: BP 120/65
[2018-09-16 15:51] VITALS: BP 120/65
[2018-09-16 16:25] VITALS: BP 120/65
== END 2018-09-16 19:50 | disposition home or self-care (01) | DRG 871 ==
LOC: ED 02:21 → DU 04:01
PROVIDERS: Family Medicine; General Practice; Specialist
DX: A41.9 Sepsis, unspecified organism (principal); J96.21 Acute and chronic respiratory failure with hypoxia; J69.0 Pneumonitis due to inhalation of food and vomit; N17.0 Acute kidney failure with tubular necrosis; E43 Unspecified severe protein-calorie malnutrition; I50.43 Acute on chronic combined systolic (congestive) and diastolic (congestive) heart failure; J44.1 Chronic obstructive pulmonary disease with (acute) exacerbation; I47.1 Supraventricular tachycardia; I48.4 Atypical atrial flutter; E87.1 Hypo-osmolality and hyponatremia; K56.609 Unspecified intestinal obstruction, unspecified as to partial versus complete obstruction; C91.Z1 Other lymphoid leukemia, in remission; R65.20 Severe sepsis without septic shock; I48.91 Unspecified atrial fibrillation; E11.65 Type 2 diabetes mellitus with hyperglycemia; R80.9 Proteinuria, unspecified; E83.42 Hypomagnesemia; M06.9 Rheumatoid arthritis, unspecified; D50.9 Iron deficiency anemia, unspecified; E87.6 Hypokalemia; F17.210 Nicotine dependence, cigarettes, uncomplicated; Z68.20 Body mass index [BMI] 20.0-20.9, adult; Z93.3 Colostomy status; Z79.52 Long term (current) use of systemic steroids; Z79.82 Long term (current) use of aspirin; Z22.322 Carrier or suspected carrier of Methicillin resistant Staphylococcus aureus
CPT/HCPCS: 82962; 83880; 84439; 87804; 94150; 97110-GP; 97116-GP; 97530-GP; A9698; C1751; J0360; J0692; J0696; J0713; J1200; J1885; J1940; J2001; J2270; J2405; J2550; J2765; J2920; J3480; J3490; J7030; J7040; J7042; J7620; J8597; Q0092; Q0163; Q9967